=== PATIENT | male | born 1950 | race Caucasian/White ===

== ENCOUNTER 2022-09-18 23:00 | Emergency (ER) | payer MEDICARE ==
[2022-09-18] MEDS ORDERED: Lidocaine 1% w/Epinephrine 1:200K 30 ML VIAL ONE (23:42)
== END 2022-09-19 00:11 | disposition home or self-care (01) ==
LOC: CSHERS 23:00
DX: S81.811A Laceration without foreign body, right lower leg, initial encounter (principal); I83.891 Varicose veins of right lower extremity with other complications; E78.5 Hyperlipidemia, unspecified; I10 Essential (primary) hypertension; Z79.01 Long term (current) use of anticoagulants; W26.9XXA Contact with unspecified sharp object(s), initial encounter
CPT/HCPCS: 12001

== ENCOUNTER 2023-08-11 10:42 | Outpatient (CLI) | payer MEDICARE | END 2023-08-11 10:43 | disposition home or self-care (01) | LOC: CSHMRI 10:42 | PROVIDERS: ATTEND Family Medicine | DX: G89.4 Chronic pain syndrome (principal); M53.3 Sacrococcygeal disorders, not elsewhere classified; M25.552 Pain in left hip; M48.48XA Fatigue fracture of vertebra, sacral and sacrococcygeal region, initial encounter for fracture; M47.26 Other spondylosis with radiculopathy, lumbar region; M89.8X8 Other specified disorders of bone, other site; S76.812A Strain of other specified muscles, fascia and tendons at thigh level, left thigh, initial encounter | CPT/HCPCS: 72148; 72195 ==